=== PATIENT | male | born 1955 | race American Indian/Alaskan Native ===

== ENCOUNTER 2022-04-28 00:22 | Emergency (ER) | payer MEDICARE ==
[2022-04-28] MEDS ORDERED: IBUPROFEN 600 MG TAB PO ONE (05:43)
[2022-04-28] MEDS ORDERED: cephALEXin 500 MG CAP PO ONE (05:43)
--- NOTE | 2022-04-28 05:47 | Emergency Department Report ---
ED General Adult HPI - General Chief complaint: Skin/Abscess/Foreign Body Stated complaint: INSECT BITE ON HEAD Source: patient Mode of arrival: Ambulatory Limitations: No Limitations - History of Present Illness Initial comments: Patient is a 67-year-old -[place] male with no past medical history who presents to the ED with complaint of acute onset persistent breast painful swollen diffuse multiple rashes for the last 3 days. Patient states that the pain has been constant and persistent and some of the rashes have purulent discharge. Patient denies dizziness, syncope, fever, chills, headache, chest pain, shortness of breath, traumatic injury, change in vision, nausea and vomiting, neck pain, back pain, abdominal pain, or change in vision. MD Complaint: Painful, swollen mildly edematous rash on scalp diffusely -: Gradual, days(s) (3) Location: head Radiation: non-radiation Severity scale (0 -10): 5 Quality: aching, sharp Consistency: constant Improves with: none Worsens with: none Associated Symptoms: denies other symptoms, headaches, rash (Swollen, painful mild erythematous rash on scalp). denies: confusion, cough, diaphoresis, fever/chills, loss of appetite, malaise, nausea/vomiting, seizure, shortness of breath, syncope, weakness Treatments Prior to Arrival: none - Related Data Previous Rx's Medication Instructions Recorded Last Taken Type Butalb/Acetamin/Caff 50-325-40 1 - 2 tab PO Q6HR PRN #15 tab 04/28/22 Unknown Rx [Fioricet 50-325-40] Doxycycline Hyclate 100 mg PO Q12H #28 cap 04/28/22 Unknown Rx Ibuprofen [Motrin] 600 mg PO Q8H PRN #30 tablet 04/28/22 Unknown Rx Allergies Allergy/AdvReac Type Severity Reaction Status Date / Time No Known Allergies Allergy Verified 04/28/22 00:50 ED Review of Systems ROS: Stated complaint: INSECT BITE ON HEAD Other details as noted in HPI Constitutional: denies: chills, fever Eyes: denies: eye pain, eye discharge, vision change ENT: denies: ear pain, throat pain Respiratory: denies: cough, shortness of breath, wheezing Cardiovascular: denies: chest pain, palpitations Endocrine: no symptoms reported Gastrointestinal: denies: abdominal pain, nausea, diarrhea Genitourinary: denies: urgency, dysuria Musculoskeletal: denies: back pain, joint swelling, arthralgia Skin: rash (Swollen, painful, mildly erythematous maculopapular rash on scalp diffusely). denies: lesions Neurological: headache. denies: weakness, paresthesias Psychiatric: denies: anxiety, depression Hematological/Lymphatic: denies: easy bleeding, easy bruising ED Past Medical Hx - Medications Home Medications: Home Medications Medication Instructions Recorded Confirmed Last Taken Type Butalb/Acetamin/Caff 50-325-40 1 - 2 tab PO Q6HR PRN #15 tab 04/28/22 Unknown Rx [Fioricet 50-325-40] Doxycycline Hyclate 100 mg PO Q12H #28 cap 04/28/22 Unknown Rx Ibuprofen [Motrin] 600 mg PO Q8H PRN #30 tablet 04/28/22 Unknown Rx ED Physical Exam - General Limitations: No Limitations General appearance: alert, in no apparent distress - Head Head exam: Present: atraumatic, normocephalic, normal inspection - Eye Eye exam: Present: normal appearance, PERRL, EOMI Pupils: Present: normal accommodation - ENT ENT exam: Present: normal exam, normal orophraynx, mucous membranes moist, TM's normal bilaterally, normal external ear exam - Neck Neck exam: Present: normal inspection, full ROM. Absent: tenderness - Respiratory Respiratory exam: Present: normal lung sounds bilaterally. Absent: respiratory distress, wheezes, rhonchi, chest wall tenderness, accessory muscle use - Cardiovascular Cardiovascular Exam: Present: normal rhythm, tachycardia, normal heart sounds. Absent: systolic murmur, diastolic murmur, rubs, gallop - GI/Abdominal GI/Abdominal exam: Present: soft, normal bowel sounds. Absent: tenderness, guarding, rebound, organomegaly - Extremities Exam Extremities exam: Present: normal inspection, full ROM, normal capillary refill - Back Exam Back exam: Present: normal inspection, full ROM. Absent: tenderness, CVA tenderness (L), muscle spasm, paraspinal tenderness, vertebral tenderness - Neurological Exam Neurological exam: Present: alert, oriented X3, CN II-XII intact, normal gait, reflexes normal - Psychiatric Psychiatric exam: Present: normal affect, normal mood - Skin Skin exam: Present: warm, dry, intact, normal color, rash (Diffuse mild erythematous maculopapular rashes on scalp with localized tenderness) ED Course Vital Signs 04/28/22 04/28/22 04/28/22 00:23 04:50 06:42 Temperature 100.1 F H 98.9 F Pulse Rate 114 H 90 92 H Respiratory 18 14 Rate Blood Pressure 151/92 137/81 [Left] O2 Sat by Pulse 97 100 99 Oximetry ED Medical Decision Making - Medical Decision Making This is a 67-year-old -[place] male with no past medical history who presents to the ED with complaint of acute onset persistent breast painful swollen diffuse multiple rashes for the last 3 days. Patient states that the pain has been constant and persistent and some of the rashes have purulent discharge. In the ED, patient is alert and oriented x3 and is not in any distress. Patient is slightly febrile and tachycardic in triage. Patient was treated for pain and fever and also given initial oral antibiotics in the ED. Patient was discharged home on pain medications and antibiotics and advised to follow-up with his primary care physician in 7 to 10 days for reevaluation or return to the ED immediately if symptoms get worse. - Differential Diagnosis Folliculitis; cellulitis; abscesses Critical care attestation.: If time is entered above; I have spent that time in minutes in the direct care of this critically ill patient, excluding procedure time. ED Disposition Clinical Impression: Acute folliculitis Disposition: 01 HOME / SELF CARE / HOMELESS Is pt being admited?: No Does the pt Need Aspirin: No Condition: Stable Instructions: Folliculitis Additional Instructions: Take medication with food, drink plenty of fluids, follow-up with your primary care physician in 7 to 10 days for reevaluation. Return to the ED immediately if symptoms get worse Prescriptions: Doxycycline Hyclate 100 mg PO Q12H #28 cap Butalb/Acetamin/Caff 50-325-40 [Fioricet 50-325-40] 1 - 2 tab PO Q6HR PRN #15 tab PRN Reason: Headache Ibuprofen [Motrin] 600 mg PO Q8H PRN #30 tablet PRN Reason: Pain Referrals: [facility] [Provider Group] - 7-10 days Forms: Work/School Release Form(ED) Time of Disposition: 05:46 Print Language: OCCITAN
[2022-04-28 06:42] VITALS: BP 137/81
== END 2022-04-28 06:43 | disposition home or self-care (01) ==
LOC: ED 00:22
DX: L73.9 Follicular disorder, unspecified (principal); Z79.899 Other long term (current) drug therapy
CPT/HCPCS: 99282